=== PATIENT | male | born 1930 | race Asian ===

== ENCOUNTER 2017-07-21 06:20 | Emergency (ER) | payer MEDICARE, OTHER ==
[2017-07-21] MEDS: DIPHTH/TET/ACEL PERTUSS (ADULT) 0.5 ML VIAL IM* (07:08)
[2017-07-21] MEDS: LIDOCAINE 2% (MDV) 20 ML INJ INJ (07:52)
== END 2017-07-21 09:10 | disposition home or self-care (01) ==
LOC: E/R 06:20
DX: S01.119A Laceration without foreign body of unspecified eyelid and periocular area, initial encounter (principal); R40.2142 Coma scale, eyes open, spontaneous, at arrival to emergency department; R40.2252 Coma scale, best verbal response, oriented, at arrival to emergency department; R40.2362 Coma scale, best motor response, obeys commands, at arrival to emergency department; R51 Headache; W01.198A Fall on same level from slipping, tripping and stumbling with subsequent striking against other object, initial encounter; Y92.9 Unspecified place or not applicable; Z87.891 Personal history of nicotine dependence; Z23 Encounter for immunization
CPT/HCPCS: 12011; 70450; 90471; 90715; 99284-25

== ENCOUNTER 2017-07-26 08:51 | Emergency (ER) | payer OTHER, MEDICARE | END 2017-07-26 10:38 | disposition home or self-care (01) | LOC: E/R 08:51 | DX: I10 Essential (primary) hypertension (principal) | CPT/HCPCS: 99282 ==

== ENCOUNTER 2017-12-22 22:36 | Inpatient (IN) | payer OTHER ==
[2017-12-22 23:09] LABS: ADD MAN DIFF? NO
[2017-12-22] MEDS: ONDANSETRON 4 MG INJ IV (23:09)
[2017-12-22] MEDS: morphine 4 MG/ML VIAL IV (23:10)
[2017-12-22] MEDS: SODIUM CHLORIDE 0.9% 1L BAG IV* (23:10)
[2017-12-22 23:11] LABS: BASOPHILS % 0.2 % (0.0-2.0); EOSINOPHILS # 0.1 10^3/ul (0.0-0.5); EOSINOPHILS % 0.7 % (0.0-7.0); HEMATOCRIT 41.1 % (42.0-52.0); HEMOGLOBIN 13.5 g/dl (14.0-18.0); LYMPHOCYTES # 0.9 10^3/ul (0.8-2.9); LYMPHOCYTES % 9.4 % (15.0-51.0); MEAN CORPUSCULAR HGB CONC 32.8 g/dl (32.0-37.0); MEAN CORPUSCULAR VOLUME 88.2 fl (82.0-101.0); MEAN PLATELET VOLUME 9.2 fl (7.4-10.4); MONOCYTE # 0.1 10^3/ul (0.3-0.9); MONOCYTES % 1.1 % (0.0-11.0); NEUTROPHIL # 8.6 10^3/ul (1.6-7.5); NEUTROPHILS % 88.4 % (39.0-77.0); PLATELET COUNT 212 10^3/UL (140-415); RED BLOOD COUNT 4.66 10^6/ul (4.70-6.10); RED CELL DISTRIBUTION WIDTH 13.7 % (11.5-14.5)
[2017-12-22 23:11] LABS: WHITE BLOOD COUNT 9.7 10^3/ul (4.8-10.8)
[2017-12-22 23:31] LABS: INR 1.01; PROTIME 13.4 Sec (11.9-14.9)
[2017-12-22 23:32] LABS: PARTIAL THROMBOPLASTIN TIME 29.4 Sec (25.0-35.0)
[2017-12-22 23:37] LABS: ALANINE AMINOTRANSFERASE 20 IU/L (13-69); ALBUMIN 4.6 g/dl (3.3-4.9); ALBUMIN/GLOBULIN RATIO 1.24; ALKALINE PHOSPHATASE 74 IU/L (42-121); ANION GAP 20 (8-16); ASPARTATE AMINO TRANSFERASE 34 IU/L (15-46); BILIRUBIN,INDIRECT 0.8 mg/dl (0-1.1); BILIRUBIN,TOTAL 0.8 mg/dl (0.2-1.3); BLOOD UREA NITROGEN 20 mg/dl (7-20); CALCIUM 10.1 mg/dl (8.4-10.2); CARBON DIOXIDE 27 mmol/L (21-31); CHLORIDE 97 mmol/L (97-110); CREATININE 1.39 mg/dl (0.61-1.24); GLUCOSE 207 mg/dl (70-220); POTASSIUM 3.7 mmol/L (3.5-5.1); SODIUM 140 mmol/L (135-144); TOTAL PROTEIN 8.3 g/dl (6.1-8.1)
[2017-12-22 23:39] LABS: LACTIC ACID 3.3 mmol/L (0.5-2.0)
[2017-12-22 23:48] LABS: TROPONIN-I 0.016 ng/ml (0.000-0.120)
[2017-12-23] MEDS: SOD CHLORIDE 0.9% 100 ML (00:41)
[2017-12-23] MEDS: IOHEXOL 100 ML (00:41)
[2017-12-23] MEDS: IOHEXOL 350MG/ML 50 ML BTL (00:42)
[2017-12-23 02:09] LABS: LACTIC ACID 2.3 mmol/L (0.5-2.0)
[2017-12-23] MEDS: hydrALAzine 20 MG INJ IV (02:26)
[2017-12-23] MEDS ORDERED: LABETALOL HCL 20MG INJ IV (02:30)
[2017-12-23] MEDS ORDERED: NACL 0.9% 3 ML SYG IV (03:00)
[2017-12-23] MEDS ORDERED: ACETAMINOPHEN 325 MG TAB PO ×2 (03:00)
[2017-12-23] MEDS: ONDANSETRON 4 MG INJ IV ×2 (03:05→21:30)
[2017-12-23] MEDS: HYDROmorphONE 0.5 MG/0.5 ML SYG IV ×3 (03:05→22:48)
[2017-12-23 03:45] LABS: ADD MAN DIFF? NO
[2017-12-23] MEDS: SOD CHLORIDE 0.9% 500 ML IV (03:59)
[2017-12-23] MEDS: SOD CHLORIDE 0.9% 1,000 ML IV ×2 (04:00→18:57)
[2017-12-23 04:02] LABS: HEMOGLOBIN A1C 6.1 % (0-5.9)
[2017-12-23 04:09] LABS: LACTIC ACID 1.9 mmol/L (0.5-2.0)
[2017-12-23 04:10] LABS: MAGNESIUM 1.9 mg/dl (1.7-2.5)
[2017-12-23 04:11] LABS: ALANINE AMINOTRANSFERASE 21 IU/L (13-69); ALBUMIN 4.2 g/dl (3.3-4.9); ALBUMIN/GLOBULIN RATIO 1.27; ALKALINE PHOSPHATASE 72 IU/L (42-121); ANION GAP 19 (8-16); ASPARTATE AMINO TRANSFERASE 30 IU/L (15-46); BILIRUBIN,INDIRECT 0.7 mg/dl (0-1.1); BILIRUBIN,TOTAL 0.7 mg/dl (0.2-1.3); BLOOD UREA NITROGEN 19 mg/dl (7-20); CALCIUM 9.1 mg/dl (8.4-10.2); CARBON DIOXIDE 25 mmol/L (21-31); CHLORIDE 99 mmol/L (97-110); CREATININE 1.05 mg/dl (0.61-1.24); GLUCOSE 192 mg/dl (70-220); POTASSIUM 3.8 mmol/L (3.5-5.1); SODIUM 139 mmol/L (135-144); TOTAL PROTEIN 7.5 g/dl (6.1-8.1)
[2017-12-23 04:14] LABS: ABNORMAL IP MESSAGE 1; BASOPHILS % 0.2 % (0.0-2.0); EOSINOPHILS % 0.1 % (0.0-7.0); HEMATOCRIT 39.9 % (42.0-52.0); HEMOGLOBIN 13.3 g/dl (14.0-18.0); LYMPHOCYTES # 0.2 10^3/ul (0.8-2.9); LYMPHOCYTES % 2.4 % (15.0-51.0); MEAN CORPUSCULAR HEMOGLOBIN 29.2 pg (29.0-33.0); MEAN CORPUSCULAR HGB CONC 33.3 g/dl (32.0-37.0); MEAN CORPUSCULAR VOLUME 87.7 fl (82.0-101.0); MONOCYTE # 0.8 10^3/ul (0.3-0.9); MONOCYTES % 8.1 % (0.0-11.0); NEUTROPHIL # 8.7 10^3/ul (1.6-7.5); NEUTROPHILS % 89.1 % (39.0-77.0); PLATELET COUNT 189 10^3/UL (140-415); POSITIVE DIFF @See below; RED BLOOD COUNT 4.55 10^6/ul (4.70-6.10); RED CELL DISTRIBUTION WIDTH 13.6 % (11.5-14.5)
[2017-12-23 04:14] LABS: WHITE BLOOD COUNT 9.8 10^3/ul (4.8-10.8)
[2017-12-23] MEDS: morphine 2 MG INJ IV (04:53)
[2017-12-23] MEDS ORDERED: HYDROmorphONE 0.5 MG/0.5 ML SYG IV (05:40)
[2017-12-23] MEDS: LEVOFLOXACIN 750MG/D5W (PMX) 150 ML IVPB (08:07)
[2017-12-23] MEDS: MAGNESIUM SULFATE 1 GM/D5W 100 ML IVPB (11:20)
[2017-12-23] MEDS: LIDOCAINE/MYLANTA 40 ML BTL PO (22:16)
[2017-12-24] MEDS: HYDROmorphONE 0.5 MG/0.5 ML SYG IV ×2 (02:48→07:53)
[2017-12-24] MEDS: SOD CHLORIDE 0.9% 1,000 ML IV ×3 (03:42→23:37)
[2017-12-24] MEDS ORDERED: PANTOPRAZOLE 40 MG INJ (04:46)
[2017-12-24] MEDS: PANTOPRAZOLE 40 MG INJ IV (05:54)
[2017-12-24 06:17] LABS: MAGNESIUM 2.5 mg/dl (1.7-2.5)
[2017-12-24] MEDS: hydrALAzine 20 MG INJ IV (08:01)
[2017-12-24] MEDS: IOHEXOL 350 100 ML BTL PO (09:53)
[2017-12-24] MEDS: LORAZEPAM 2 MG INJ IV (09:54)
[2017-12-24] MEDS ORDERED: HYDROmorphONE 0.5 MG/0.5 ML SYG IV (10:00)
[2017-12-24] MEDS: HYDROmorphONE 2 MG/ML SYG IV ×3 (13:50→23:37)
[2017-12-25] MEDS: hydrALAzine 20 MG INJ IV (02:44)
[2017-12-25] MEDS: PANTOPRAZOLE 40 MG INJ IV (05:10)
[2017-12-25] MEDS: HYDROmorphONE 2 MG/ML SYG IV ×2 (05:22→13:06)
[2017-12-25 05:56] LABS: ANION GAP 16 (8-16); BLOOD UREA NITROGEN 29 mg/dl (7-20); CALCIUM 8.7 mg/dl (8.4-10.2); CARBON DIOXIDE 25 mmol/L (21-31); CHLORIDE 111 mmol/L (97-110); CREATININE 1.01 mg/dl (0.61-1.24); GLUCOSE 111 mg/dl (70-220); POTASSIUM 3.8 mmol/L (3.5-5.1); SODIUM 148 mmol/L (135-144)
[2017-12-25 05:57] LABS: MAGNESIUM 2.4 mg/dl (1.7-2.5)
[2017-12-25] MEDS ORDERED: ACETAMINOPHEN 1000 MG/100 ML IVPB (07:00)
[2017-12-25] MEDS: HYDROmorphONE 1 MG/ML SYG IV (10:31)
[2017-12-25] MEDS: SOD CHLORIDE 0.9% 1,000 ML IV (13:07)
[2017-12-25] MEDS: KETOROLAC 15 MG INJ IV ×2 (14:26→19:30)
[2017-12-25] MEDS ORDERED: ROCURONIUM 50 MG INJ (17:47)
[2017-12-25] MEDS ORDERED: ETOMIDATE 20 MG INJ (17:47)
[2017-12-25] MEDS ORDERED: FENTAnyl 50 MCG/ML VIAL ×2 (17:48→20:31)
[2017-12-25] MEDS ORDERED: ROPIVACAINE 0.2% 20 ML VIAL (17:49)
[2017-12-25] MEDS ORDERED: hydrALAzine 20 MG INJ (18:02)
[2017-12-25] MEDS ORDERED: PHENYLephrine (100 MCG/ML) 5ML SYG ×3 (18:32→20:16)
[2017-12-25] MEDS ORDERED: LIDOCAINE 1%/EPI 30 ML INJ (18:43)
[2017-12-25] MEDS ORDERED: BUPIVACAINE 0.25% (MPF) 30 ML INJ (18:43)
[2017-12-25] MEDS ORDERED: FENTAnyl 50 MCG/ML VIAL IV ×3 (19:30)
[2017-12-25] MEDS ORDERED: LABETALOL HCL 20MG INJ IV (19:30)
[2017-12-25] MEDS ORDERED: ONDANSETRON 4 MG INJ IV ×2 (19:30→21:00)
[2017-12-25] MEDS ORDERED: ALBUMIN HUMAN 5% 250 ML IV (19:30)
[2017-12-25] MEDS ORDERED: HYDROmorphONE (0.2 MG/ML) 10ML SYG IV ×2 (19:30)
[2017-12-25] MEDS ORDERED: hydrALAzine 20 MG INJ IV (19:30)
[2017-12-25] MEDS ORDERED: METOCLOPRAMIDE 10 MG INJ (19:40)
[2017-12-25] MEDS ORDERED: DEXAMETHASONE 4 MG/ML 1 ML INJ (19:40)
[2017-12-25] MEDS ORDERED: ONDANSETRON 4 MG INJ (19:40)
[2017-12-25] MEDS ORDERED: CEFAZOLIN 1 GM INJ (20:05)
[2017-12-25] MEDS ORDERED: SUGAMMADEX SODIUM 200 MG/2 ML VIAL IV (20:21)
[2017-12-25] MEDS ORDERED: LABETALOL HCL 20MG INJ (20:32)
[2017-12-25] MEDS: HYDROmorphONE (0.2 MG/ML) 10ML SYG IV (21:03)
[2017-12-25 21:15] LABS: ADD UMIC NO; UR ASCORBIC ACID NEGATIVE (NEGATIVE); UR BILIRUBIN (Dip) NEGATIVE (NEGATIVE); UR BLOOD (Dip) NEGATIVE (NEGATIVE); UR CLARITY CLEAR (CLEAR); UR COLOR YELLOW (YELLOW); UR GLUCOSE (Dip) 1+ mg/dL (NEGATIVE); UR KETONES (Dip) 1+ mg/dL (NEGATIVE); UR LEUKOCYTE ESTERASE (Dip) NEGATIVE Leu/ul (NEGATIVE); UR NITRITE (Dip) NEGATIVE (NEGATIVE); UR SPECIFIC GRAVITY (Dip) 1.021 (1.003-1.030); UR TOTAL PROTEIN (Dip) NEGATIVE (NEGATIVE); UR UROBILINOGEN (Dip) NEGATIVE (NEGATIVE)
[2017-12-25] MEDS: CEFAZOLIN 2 GM/50 ML (PMX) 50 ML IVPB (21:19)
[2017-12-25] MEDS ORDERED: NORepinephrine 8MG/250 ML (PMX 250 ML IV (22:00)
[2017-12-25] MEDS: SOD CHLORIDE 0.9% 500 ML IV (22:14)
[2017-12-25] MEDS: EPHEDrine SULFATE 50 MG/5 ML SYG IV (22:15)
[2017-12-25] MEDS: D5W-0.45 NACL + KCL 20 MEQ 1,000 ML IV (23:44)
[2017-12-26] MEDS: KETOROLAC 15 MG INJ IV (01:17)
[2017-12-26] MEDS: HYDROmorphONE 1 MG/ML SYG IV ×2 (02:55→06:10)
[2017-12-26] MEDS: SOD CHLORIDE 0.9% 500 ML IV (04:29)
[2017-12-26 05:24] LABS: ABNORMAL IP MESSAGE 1; HEMATOCRIT 26.4 % (42.0-52.0); HEMOGLOBIN 8.3 g/dl (14.0-18.0); MEAN CORPUSCULAR HEMOGLOBIN 28.9 pg (29.0-33.0); MEAN CORPUSCULAR HGB CONC 31.4 g/dl (32.0-37.0); MEAN PLATELET VOLUME 9.8 fl (7.4-10.4); PLATELET COUNT 127 10^3/UL (140-415); POSITIVE DIFF @See below; RED BLOOD COUNT 2.87 10^6/ul (4.70-6.10); RED CELL DISTRIBUTION WIDTH 14.3 % (11.5-14.5)
[2017-12-26 05:24] LABS: WHITE BLOOD COUNT 2.7 10^3/ul (4.8-10.8)
[2017-12-26] MEDS: PANTOPRAZOLE 40 MG INJ IV (05:44)
[2017-12-26] MEDS: CEFAZOLIN 2 GM/50 ML (PMX) 50 ML IVPB (05:45)
[2017-12-26 05:58] LABS: ADD MAN DIFF? YES
[2017-12-26 06:20] LABS: LACTIC ACID 5.8 mmol/L (0.5-2.0)
[2017-12-26 06:24] LABS: ANION GAP 14 (8-16); BLOOD UREA NITROGEN 32 mg/dl (7-20); CALCIUM 7.8 mg/dl (8.4-10.2); CARBON DIOXIDE 21 mmol/L (21-31); CHLORIDE 116 mmol/L (97-110); CREATININE 1.43 mg/dl (0.61-1.24); GLUCOSE 170 mg/dl (70-220); POTASSIUM 3.4 mmol/L (3.5-5.1); SODIUM 148 mmol/L (135-144)
[2017-12-26] MEDS ORDERED: SOD CHLORIDE 0.9% 500 ML IV (06:30)
[2017-12-26 06:59] LABS: MAGNESIUM 2.1 mg/dl (1.7-2.5)
[2017-12-26] MEDS ORDERED: LIDOCAINE 2% (SDV) 5 ML INJ (07:00)
[2017-12-26] MEDS ORDERED: NA BICARBONATE 8.4% 50 ML SYG ×3 (07:00→15:26)
[2017-12-26] MEDS ORDERED: ETOMIDATE 20 MG INJ (07:00)
[2017-12-26] MEDS ORDERED: ATROPINE 1 MG/10 ML SYRINGE ×2 (07:00→20:43)
[2017-12-26] MEDS ORDERED: EPINEPHrine 0.1 MG/ML SYG ×4 (07:00→21:28)
[2017-12-26] MEDS ORDERED: ROCURONIUM 50 MG INJ ×2 (07:00→19:05)
[2017-12-26] MEDS ORDERED: DEXTROSE 5%-0.45% NACL 500 ML IV (07:00)
[2017-12-26] MEDS: SOD CHLORIDE 0.9% 1,000 ML IV ×3 (07:19→14:14)
[2017-12-26] MEDS: DEXTROSE 5%-0.45% NACL 1,000 ML IV (07:54)
[2017-12-26 08:05] LABS: BAND NEUTROPHILS #M 0.8 10^3/ul (0.0-0.6); BAND NEUTROPHILS % (M) 32 % (0-4); ERYTHROBLAST% (NRBC) (M) 4 % (0-0); GIANT THROMBO% (M) 3 % (0-0); LYMPHOCYTES #M 0.4 10^3/ul (0.8-2.9); LYMPHOCYTES % (M) 17 % (15-51); METAMYELOCYTES %M 1 % (0-0); MONOCYTE #M 0.1 10^3/ul (0.3-0.9); MONOCYTES % (M) 5 % (0-11); PLATELET ESTIMATE DECREASED; REACTIVE LYMPHOCYTES% (M) 1 % (0-0); SEG NEUT #M 1.2 10^3/ul (1.6-7.5); SEGMENTED NEUTROPHILS (M) % 44 % (39-77); SMUDGE%M 14 % (0-0)
[2017-12-26] MEDS ORDERED: CEFEPIME 2GM/50 ML (PMX) 50 ML IVPB (09:00)
[2017-12-26 09:13] LABS: AADO2 Arterial 69.3 mmHg (7.0-24.0); Arterial Base Excess -10.9 mmol/L (-3.0-3); Arterial Blood Gas Oxygen Sat 93.7 mmHG (95.0-100.0); Arterial COHb 0.6 % (0.0-3.0); Arterial Fraction of Oxyhgb 92.9 % (93.0-99.0); Arterial HCO3 15.1 mmol/L (22.0-26.0); Arterial MetHb 0.3 % (0.0-1.5); Arterial Total Hemglobin 8.7 g/dl (12.0-18.0); Arterial pCO2 34.1 mmhg (35-45); MODE NASAL CANNULA; Site A-Line
[2017-12-26] MEDS: LIDOCAINE 1% (MPF) 5 ML VIAL SC (10:36)
[2017-12-26] MEDS: POTASSIUM CHLORIDE 100 ML IVPB (10:53)
[2017-12-26] MEDS: ENOXAPARIN 40 MG/0.4 ML SYG SC (10:55)
[2017-12-26] MEDS: MEROPENEM 500MG/50 ML (PMX) 50 ML IVPB (12:35)
[2017-12-26] MEDS: FENTAnyl 50 MCG/ML VIAL IV ×2 (12:35→15:38)
[2017-12-26 13:10] LABS: HEMATOCRIT 32.9 % (42.0-52.0); HEMOGLOBIN 10.4 g/dl (14.0-18.0)
[2017-12-26 13:19] LABS: LACTIC ACID 6.9 mmol/L (0.5-2.0)
[2017-12-26 15:16] LABS: AADO2 Arterial 137.8 mmHg (7.0-24.0); Arterial Base Excess -13.5 mmol/L (-3.0-3); Arterial Blood Gas Oxygen Sat 90.1 mmHG (95.0-100.0); Arterial COHb 0.4 % (0.0-3.0); Arterial Fraction of Oxyhgb 89.5 % (93.0-99.0); Arterial HCO3 12.5 mmol/L (22.0-26.0); Arterial MetHb 0.3 % (0.0-1.5); Arterial Total Hemglobin 9.6 g/dl (12.0-18.0); Arterial pCO2 29.1 mmhg (35-45); MODE NASAL CANNULA; Site A-Line
[2017-12-26] MEDS: SODIUM BICARBONATE (IV ADD) 100 MEQ in DEXTROSE 5% 1,000 ML IV (15:34)
[2017-12-26] MEDS: NA BICARBONATE 8.4% 50 ML SYG IV ×5 (15:38→23:48)
[2017-12-26 16:46] LABS: ANION GAP 19 (8-16); BLOOD UREA NITROGEN 31 mg/dl (7-20); CALCIUM 6.9 mg/dl (8.4-10.2); CARBON DIOXIDE 13 mmol/L (21-31); CHLORIDE 118 mmol/L (97-110); GLUCOSE 153 mg/dl (70-220); POTASSIUM 3.9 mmol/L (3.5-5.1); SODIUM 146 mmol/L (135-144)
[2017-12-26] MEDS: PHENYLephrine 20MG IN 250 ML 250 ML IV (17:15)
[2017-12-26] MEDS ORDERED: SOD CHLORIDE 0.9% 250 ML IV* (18:37)
[2017-12-26] MEDS ORDERED: SUCCINYLCHOLINE CHLORIDE 100 MG/5 ML SYG IV (19:05)
[2017-12-26] MEDS ORDERED: VASOPRESSIN 20 UNITS INJ (19:06)
[2017-12-26] MEDS ORDERED: ALBUMIN HUMAN 25% 400 ML (19:11)
[2017-12-26] MEDS ORDERED: ALBUMIN HUMAN 5% 500 ML (19:11)
[2017-12-26 19:17] LABS: LACTIC ACID 7.8 mmol/L (0.5-2.0)
[2017-12-26] MEDS ORDERED: HYDROmorphONE 2 MG/ML SYG (19:46)
[2017-12-26] MEDS ORDERED: AMIODARONE 150 MG INJ (19:49)
[2017-12-26] MEDS ORDERED: CA CHLORIDE 10% 10 ML SYRINGE ×2 (20:02→23:00)
[2017-12-26] MEDS ORDERED: DEXTROSE 5%-0.45% NACL 1,000 ML IV (20:15)
[2017-12-26] MEDS ORDERED: ONDANSETRON 4 MG TAB PO (20:30)
[2017-12-26] MEDS ORDERED: morphine 2 MG INJ IV ×2 (20:30→21:00)
[2017-12-26] MEDS: ALBUMIN HUMAN 25% 100 ML ×2 (21:12→21:13)
[2017-12-26] MEDS: ALBUMIN HUMAN 5% 500 ML (21:14)
[2017-12-26 21:20] LABS: ABNORMAL IP MESSAGE 1; MEAN CORPUSCULAR HEMOGLOBIN 29.2 pg (29.0-33.0); POSITIVE DIFF @See below; RED CELL DISTRIBUTION WIDTH 14.9 % (11.5-14.5)
[2017-12-26 21:28] LABS: WHITE BLOOD COUNT 3.5 10^3/ul (4.8-10.8)
[2017-12-26 21:28] LABS: AADO2 Arterial 596.1 mmHg (7.0-24.0); Arterial Base Excess -21.3 mmol/L (-3.0-3); Arterial Blood Gas Oxygen Sat 93.4 mmHG (95.0-100.0); Arterial COHb 0.1 % (0.0-3.0); Arterial HCO3 7.5 mmol/L (22.0-26.0); Arterial MetHb 0.3 % (0.0-1.5); Arterial Total Hemglobin 8.7 g/dl (12.0-18.0); Arterial pCO2 27.5 mmhg (35-45); MEAN CORPUSCULAR HGB CONC 30.4 g/dl (32.0-37.0); MEAN CORPUSCULAR VOLUME 95.8 fl (82.0-101.0); MEAN PLATELET VOLUME 12.4 fl (7.4-10.4); MODE VENT - AC; NUCLEATED RED BLOOD CELLS% 2.8 /100WBC (0.0-0.0); Site A-Line
[2017-12-26] MEDS ORDERED: PHENYLephrine 40 MG in DEXTROSE 5% 496 ML IV (21:30)
[2017-12-26] MEDS ORDERED: EPINEPHrine 4 MG in DEXTROSE 5% 246 ML IV (21:30)
[2017-12-26] MEDS: EPINEPHrine 0.1 MG/ML SYG IV (21:30)
[2017-12-26 21:31] LABS: ADD MAN DIFF? YES; PLATELET COUNT 26 10^3/UL (140-415)
[2017-12-26 21:46] LABS: ANION GAP 28 (8-16); BLOOD UREA NITROGEN 23 mg/dl (7-20); CALCIUM 10.8 mg/dl (8.4-10.2); CARBON DIOXIDE 17 mmol/L (21-31); CHLORIDE 101 mmol/L (97-110); CREATININE 1.59 mg/dl (0.61-1.24); POTASSIUM 4.3 mmol/L (3.5-5.1); SODIUM 142 mmol/L (135-144)
[2017-12-26 21:47] LABS: IMMEDIATE SPIN CROSSMATCH 1 7
[2017-12-26 21:55] LABS: GLUCOSE 616 mg/dl (70-220)
[2017-12-26 21:56] LABS: LACTIC ACID 15.5 mmol/L (0.5-2.0)
[2017-12-26 22:19] LABS: PROTIME 62.9 Sec (11.9-14.9); PT RATIO 4.9
[2017-12-26 22:23] LABS: ANISOCYTOSIS 2+ (0-0); BAND NEUTROPHILS #M 0.2 10^3/ul (0.0-0.6); BAND NEUTROPHILS % (M) 6 % (0-4); ERYTHROBLAST% (NRBC) (M) 11 % (0-0); GIANT THROMBO% (M) 1 % (0-0); LYMPHOCYTES #M 2.4 10^3/ul (0.8-2.9); LYMPHOCYTES % (M) 69 % (15-51); METAMYELOCYTES %M 2 % (0-0); MICROCYTOSIS 2+ (0-0); MONOCYTE #M 0.3 10^3/ul (0.3-0.9); MONOCYTES % (M) 9 % (0-11); MYELOCYTES % (M) 2 % (0-0); PLATELET ESTIMATE DECREASED; POIKILOCYTOSIS 1+ (0-0); POLYCHROMASIA 1+ (0-0); REACTIVE LYMPHOCYTES #M 0.1 10^3/ul (0.0-0.0); REACTIVE LYMPHOCYTES% (M) 5 % (0-0); SEG NEUT #M 0.3 10^3/ul (1.6-7.5); SEGMENTED NEUTROPHILS (M) % 7 % (39-77); SMUDGE%M 15 % (0-0)
[2017-12-26 22:27] LABS: INR 6.97; PARTIAL THROMBOPLASTIN TIME 80.1 Sec (25.0-35.0)
[2017-12-26] MEDS ORDERED: PHENYLephrine 20MG IN 250 ML 250 ML (22:45)
[2017-12-26 22:57] LABS: WHITE BLOOD COUNT 1.7 10^3/ul (4.8-10.8)
[2017-12-26 22:57] LABS: ABNORMAL IP MESSAGE 1; HEMATOCRIT 29.3 % (42.0-52.0); HEMOGLOBIN 9.2 g/dl (14.0-18.0); MEAN CORPUSCULAR HEMOGLOBIN 28.9 pg (29.0-33.0); MEAN CORPUSCULAR HGB CONC 31.4 g/dl (32.0-37.0); MEAN CORPUSCULAR VOLUME 92.1 fl (82.0-101.0); MEAN PLATELET VOLUME 10.8 fl (7.4-10.4); NUCLEATED RED BLOOD CELLS% 4.2 /100WBC (0.0-0.0); POSITIVE DIFF @See below; RED BLOOD COUNT 3.18 10^6/ul (4.70-6.10); RED CELL DISTRIBUTION WIDTH 14.3 % (11.5-14.5)
[2017-12-26] MEDS ORDERED: GLUCOSE GEL 15 GRAM TUBE PO ×2 (23:00)
[2017-12-26] MEDS ORDERED: INSULIN ASPART [NOVOLOG] 3 ML PEN SC (23:00)
[2017-12-26] MEDS: SODIUM BICARBONATE (IV ADD) 150 MEQ in DEXTROSE 5% 1,000 ML IV (23:00)
[2017-12-26] MEDS ORDERED: GLUCOSE GEL 15 GRAM TUBE BUCCAL (23:00)
[2017-12-26] MEDS ORDERED: DEXTROSE 50% 50 ML SYRINGE IV ×5 (23:00→23:30)
[2017-12-26] MEDS ORDERED: GLUCAGON 1 MG INJ IM (23:00)
[2017-12-26 23:06] LABS: PLATELET COUNT 17 10^3/UL (140-415)
[2017-12-26 23:07] LABS: ADD MAN DIFF? YES
[2017-12-26 23:13] LABS: ALANINE AMINOTRANSFERASE 115 IU/L (13-69); ALBUMIN/GLOBULIN RATIO 1.81; ALKALINE PHOSPHATASE 22 IU/L (42-121); ANION GAP 37 (8-16); ASPARTATE AMINO TRANSFERASE 613 IU/L (15-46); BILIRUBIN,INDIRECT 0.3 mg/dl (0-1.1); BILIRUBIN,TOTAL 0.3 mg/dl (0.2-1.3); BLOOD UREA NITROGEN 25 mg/dl (7-20); CALCIUM 10.9 mg/dl (8.4-10.2); CARBON DIOXIDE 13 mmol/L (21-31); CHLORIDE 114 mmol/L (97-110); CREATININE 2.14 mg/dl (0.61-1.24); GLUCOSE 171 mg/dl (70-220); SODIUM 158 mmol/L (135-144); TOTAL PROTEIN 3.1 g/dl (6.1-8.1)
[2017-12-26 23:16] LABS: AADO2 Arterial 603.6 mmHg (7.0-24.0); AADO2 Mixed Venous 603.6 mmHg; Allen Test ACCEPTAB; Arterial Base Excess -19.2 mmol/L (-3.0-3); Arterial Blood Gas Oxygen Sat 88.7 mmHG (95.0-100.0); Arterial COHb 0.3 % (0.0-3.0); Arterial Fraction of Oxyhgb 88.4 % (93.0-99.0); Arterial MetHb 0 % (0.0-1.5); Arterial Total Hemglobin 9.9 g/dl (12.0-18.0); MODE VENT - AC; MetHgb Mixed Venous 0 %; Mixed Venous Base Excess -19.2 mmol/L; Mixed Venous COHb 0.3 %; Mixed Venous Fraction OxyHgb 88.4 %; Mixed Venous Oxygen Sat 88.7 mmHG (65.0-75.0); Mixed Venous Total Hemglobin 9.9 g/dl; POTASSIUM 6.1 mmol/L (3.5-5.1); Site A-Line
[2017-12-26 23:17] LABS: PROTIME 72.3 Sec (11.9-14.9); PT RATIO 5.6
[2017-12-26] MEDS ORDERED: INSULIN REGULAR, HUMAN 100 UNIT/1 ML 3ML VIAL IVP (23:18)
[2017-12-26 23:19] LABS: MODE VENT - AC; MetHgb Venous 0 %; Sample Type Blood venous; Site VENOUS LINE; Venous COHb 0.2 %; Venous Fraction OxyHgb 52.6 %; Venous Oxygen Sat 52.7 mmHG (55.0-75.0); Venous Total Hemglobin 9.6 g/dl
[2017-12-26 23:23] LABS: PARTIAL THROMBOPLASTIN TIME 100.6 Sec (25.0-35.0)
[2017-12-26 23:24] LABS: LACTIC ACID > 24.0 mmol/L (0.5-2.0)
[2017-12-26] MEDS: VASOPRESSIN 60 UNIT in DEXTROSE 5% 57 ML IV (23:28)
[2017-12-26 23:29] LABS: ANISOCYTOSIS 1+ (0-0); BAND NEUTROPHILS #M 0.1 10^3/ul (0.0-0.6); BAND NEUTROPHILS % (M) 8 % (0-4); EOSINOPHILS % (M) 1 % (0-7); ERYTHROBLAST% (NRBC) (M) 12 % (0-0); LYMPHOCYTES #M 0.9 10^3/ul (0.8-2.9); LYMPHOCYTES % (M) 57 % (15-51); METAMYELOCYTES #M 0.1 10^3/ul (0.0-0.0); METAMYELOCYTES %M 8 % (0-0); MICROCYTOSIS 1+ (0-0); MONOCYTE #M 0.1 10^3/ul (0.3-0.9); MONOCYTES % (M) 7 % (0-11); MYELOCYTES #M 0.1 10^3/ul (0.0-0.0); MYELOCYTES % (M) 9 % (0-0); PLATELET ESTIMATE SIG DECREASED; PROMYELOCYTES % (M) 2 % (0-0); REACTIVE LYMPHOCYTES% (M) 1 % (0-0); SEG NEUT #M 0.1 10^3/ul (1.6-7.5); SEGMENTED NEUTROPHILS (M) % 6 % (39-77); SMUDGE%M 9 % (0-0)
[2017-12-26] MEDS: DEXTROSE 50% 50 ML SYRINGE IV (23:30)
[2017-12-26] MEDS: EVAC CONTAINER IV (23:39)
[2017-12-26] MEDS: HUMAN PROTHROMBIN COMPLX IV (23:39)
[2017-12-26] MEDS: CA CHLORIDE 10% 10 ML SYRINGE IV (23:40)
[2017-12-26] MEDS: HYDROCORTISONE 100 MG INJ IV (23:41)
[2017-12-26] MEDS ORDERED: INSULIN HUMAN REGULAR 100 UNIT in SOD CHLORIDE 0.9% 99 ML IV (23:45)
[2017-12-26] MEDS: INSULIN REGULAR, HUMAN 100 UNIT/1 ML 3ML VIAL IVP (23:45)
[2017-12-27] MEDS ORDERED: DEXTROSE 50% 50 ML SYRINGE IV
[2017-12-27] MEDS ORDERED: NA BICARBONATE 8.4% 50 ML SYG IV (00:30)
[2017-12-27] MEDS ORDERED: EPINEPHRINE 1 MG IV (00:30)
[2017-12-27] MEDS ORDERED: ACCU-CHEK XX ×2 (02:00)
[2017-12-27] MEDS ORDERED: ENOXAPARIN 40 MG/0.4 ML SYG SC (09:00)
== END 2017-12-27 00:30 | disposition expired | DRG 329 ==
LOC: E/R 22:36 → PP2 12-23 03:08 → MS4 12-25 19:15 → PP2 12-23 02:39 → ICU 12-25 22:35
PROC: 0DB80ZZ Excision of Small Intestine, Open Approach (ICD-10-PCS; principal; 2017-12-25 17:30)
PROC: 0W9G0ZZ Drainage of Peritoneal Cavity, Open Approach (ICD-10-PCS; 2017-12-25 17:55)
PROC: 30233N1 Transfusion of Nonautologous Red Blood Cells into Peripheral Vein, Percutaneous Approach (ICD-10-PCS; 2017-12-25 17:55)
DX: K56.609 Unspecified intestinal obstruction, unspecified as to partial versus complete obstruction (principal); J18.9 Pneumonia, unspecified organism; A41.9 Sepsis, unspecified organism; R65.20 Severe sepsis without septic shock; I26.09 Other pulmonary embolism with acute cor pulmonale; D65 Disseminated intravascular coagulation [defibrination syndrome]; E87.2 Acidosis; N17.9 Acute kidney failure, unspecified; E87.0 Hyperosmolality and hypernatremia; E87.4 Mixed disorder of acid-base balance; K91.870 Postprocedural hematoma of a digestive system organ or structure following a digestive system procedure; R18.8 Other ascites; D64.9 Anemia, unspecified; I48.91 Unspecified atrial fibrillation; N40.0 Benign prostatic hyperplasia without lower urinary tract symptoms; E87.6 Hypokalemia; E83.89 Other disorders of mineral metabolism; Y83.8 Other surgical procedures as the cause of abnormal reaction of the patient, or of later complication, without mention of misadventure at the time of the procedure; Y92.239 Unspecified place in hospital as the place of occurrence of the external cause; Z66 Do not resuscitate; I50.811 Acute right heart failure; R68.0 Hypothermia, not associated with low environmental temperature; D69.59 Other secondary thrombocytopenia
CPT/HCPCS: 36415; 36430; 36592; 36600; 71045; 74018; 74019; 74176; 75635; 76775; 80048; 80053; 81003; 82803; 83036; 83605; 83735; 84443; 84484; 85014; 85018; 85025; 85610; 85730; 86850; 86900; 86901; 86920; 87040; 87081; 87086; 88307; 93005; 94002; 96374; 96375; 96376; 99285-25